=== PATIENT | female | born 1970 | race American Indian/Alaskan Native ===

== ENCOUNTER 2019-10-14 10:40 | Emergency (ER) | payer MEDICARE ==
[2019-10-14] MEDS ORDERED: LORazepam 2 MG/ML VIAL ONE (11:04)
[2019-10-14] MEDS ORDERED: levETIRAcetam 1000 MG/NS 0.75% 1,000 MG/100 ML BAG IV ONE ×2 (11:08→11:21)
[2019-10-14] MEDS ORDERED: LORazepam 2 MG/ML VIAL IV ONE (11:20)
[2019-10-14 11:39] LABS: Hematocrit 42.3 % (30.3-42.9); Hemoglobin 13.7 gm/dl (10.1-14.3); Mean Corpuscular HGB Conc 33 % (30-34); Mean Corpuscular Volume 97 fl (79-97); Platelet Count 255 K/mm3 (140-440); Red Blood Count 4.37 M/mm3 (3.65-5.03); Red Cell Distribution Width 15.4 % (13.2-15.2)
--- NOTE | 2019-10-14 11:51 | XRay Report ---
CHEST 1 VIEW INDICATION / CLINICAL INFORMATION: CINTIA. COMPARISON: None available. FINDINGS: SUPPORT DEVICES: None. HEART / MEDIASTINUM: No significant abnormality. LUNGS / PLEURA: No significant pulmonary or pleural abnormality.. No pneumothorax. ADDITIONAL FINDINGS: No significant additional findings. IMPRESSION: 1. No acute findings. Signer Name: Yosvany Marx MD Signed: 10/14/2019 11:47 AM Workstation Name: [id number]
[2019-10-14 11:55] LABS: Creatine Kinase MB < 1.0 ng/mL (0.0-4.0)
[2019-10-14 11:56] LABS: Alanine Aminotransferase 78 units/L (7-56); Albumin 4.7 g/dL (3.9-5); BUN/Creatinine Ratio 10; Bilirubin,Direct < 0.2 mg/dL (0-0.2); Blood Urea Nitrogen 11 mg/dL (7-17); Hemolysis Index 4
--- NOTE | 2019-10-14 12:12 | Cat Scan Report ---
CT head/brain wo con INDICATION / CLINICAL INFORMATION: 49 years Female; Stroke symptoms. TECHNIQUE: Routine CT head without contrast. All CT scans at this location are performed using CT dos e reduction for ALARA by means of automated exposure control. COMPARISON: 04/20/2009 FINDINGS: BRAIN / INTRACRANIAL CONTENTS: No acute hemorrhage, mass effect, midline shift, hydrocephalus, or acu te, large territorial infarct. No chronic infarct or atrophy appreciated. No significant white matter abnormality. There may be slight prominence of the pituitary gland, near the infundibulum. However, this finding i s not significantly changed from prior study. Follow-up with MRI of the pituitary, as clinically medina anted. CRANIOCERVICAL JUNCTION: No significant abnormality. ORBITS: No significant abnormality of visualized orbits. SINUSES / MASTOIDS: Mild mucosal thickening in the ethmoids. ADDITIONAL FINDINGS: Sebaceous cyst seen superficial left parietal-occipital region. No signs of unde rlying calvarial fracture appreciated. IMPRESSION: 1. No focal intra-axial mass, hemorrhage, hydrocephalus, or acute, large territorial infarct. 2. There may be mild prominence of the pituitary gland as described above. Follow-up with MRI of the pituitary, as clinically warranted. Certainly, this can be performed on an outpatient basis. Signer Name: Tyson Garcia MD, III Signed: 10/14/2019 12:08 PM Workstation Name: [id number]
[2019-10-14 12:23] VITALS: BP 129/77
[2019-10-14 12:40] LABS: INR 1.17 (0.87-1.13); Partial Thromboplastin Time 25.7 Sec. (24.2-36.6)
[2019-10-14 12:41] LABS: Thrombin Time 17.8 Sec. (15.1-19.6)
[2019-10-14 12:46] LABS: Total Cells Counted 100
[2019-10-14 12:47] LABS: Basophils % (Manual) 0 % (0.0-1.8); Burr Cells Few; Eosinophils % (Manual) 0 % (0.0-4.3); Platelet Estimate Consistent w Auto; Tear Drop Cells Few
--- NOTE | 2019-10-14 13:55 | Emergency Department Report ---
ED General Adult HPI - General Chief complaint: Seizure Stated complaint: CONVULSIONS Time Seen by Provider: 10/14/19 11:06 Source: patient Mode of arrival: Stretcher Limitations: Other - History of Present Illness Initial comments: 49-year-old female brought in by medics after a seizure. Family thought that she was "postictal" too long. She was transported to this facility further evaluation. She was found to have valproic acid bottles from 2017. Noncompliance is of course a possibility. When the patient presented to the emergency department she had another seizure. He was given a gram of Keppra. She was sent for a CT scan. - Related Data Home Medications Medication Instructions Recorded Confirmed Last Taken Divalproex ER 500 mg PO Q6H 10/14/19 10/14/19 Unknown Previous Rx's Medication Instructions Recorded Last Taken Type levETIRAcetam [Keppra TAB] 500 mg PO BID #60 tablet 10/14/19 Unknown Rx Allergies Allergy/AdvReac Type Severity Reaction Status Date / Time No Known Allergies Allergy Verified 10/14/19 12:18 ED Review of Systems ROS: Stated complaint: CONVULSIONS Other details as noted in HPI Comment: Unobtainable due to pts medical conditions ED Past Medical Hx - Past Medical History Previous Medical History?: Yes Hx Seizures: Yes Additional medical history: JING - Surgical History Additional Surgical History: JING - Social History Smoking Status: Unknown if ever smoked - Medications Home Medications: Home Medications Medication Instructions Recorded Confirmed Last Taken Type Divalproex ER 500 mg PO Q6H 10/14/19 10/14/19 Unknown History levETIRAcetam [Keppra TAB] 500 mg PO BID #60 tablet 10/14/19 Unknown Rx ED Physical Exam - General Limitations: Altered Mental Status (there active ictus) General appearance: other (conjugate gaze deviation to the right) - Head Head exam: Present: atraumatic - Eye Eye exam: Absent: scleral icterus - ENT ENT exam: Present: normal exam - Neck Neck exam: Absent: tenderness, meningismus - Respiratory Respiratory exam: Present: normal lung sounds bilaterally. Absent: respiratory distress - Cardiovascular Cardiovascular Exam: Present: regular rate, normal rhythm. Absent: systolic murmur, diastolic murmur, rubs, gallop - GI/Abdominal GI/Abdominal exam: Present: soft. Absent: distended, tenderness, guarding, rebound, rigid - Extremities Exam Extremities exam: Present: normal inspection - Back Exam Back exam: Present: normal inspection - Neurological Exam Neurological exam: Present: other (active seizure) - Psychiatric Psychiatric exam: Present: other (not applicable) - Skin Skin exam: Present: warm, dry, intact, normal color. Absent: rash ED Course Vital Signs 10/14/19 10/14/19 11:12 12:19 Temperature 98.9 F Pulse Rate 120 H 95 H Respiratory 20 16 Rate Blood Pressure 162/84 Blood Pressure 129/77 [Left] O2 Sat by Pulse 97 95 Oximetry - Reevaluation(s) Reevaluation #1: Patient was observed. She appeared to do well with Keppra. Her seizure resolved. She returned to her neurological baseline which is completely intact. She was walked by nursing staff to make sure she was stable. She had her family requested discharge. She is appropriate for discharge. She is counseled to return as needed and follow-up with her neurologist. She is counseled not to drive. She is prescribed Keppra. 10/14/19 14:02 ED Medical Decision Making - Lab Data Result diagrams: 10/14/19 Unknown 10/14/19 Unknown Laboratory Results - last 24 hr 10/14/19 10/14/19 10/14/19 Unknown Unknown Unknown WBC 12.0 H RBC 4.37 Hgb 13.7 Hct 42.3 MCV 97 MCH 31 MCHC 33 RDW 15.4 H Plt Count 255 Lymph # Sales Representative Groceries Add Manual Diff Complete Total Counted 100 Seg Neuts % (Manual) 49.0 Band Neutrophils % 0 Lymphocytes % (Manual) 46.0 H Reactive Lymphs % (Man) 1.0 Monocytes % (Manual) 4.0 Eosinophils % (Manual) 0 Basophils % (Manual) 0 Metamyelocytes % 0 Myelocytes % 0 Promyelocytes % 0 Blast Cells % 0 Nucleated RBC % Not Reportable Seg Neutrophils # Man 5.9 Band Neutrophils # 0.0 Lymphocytes # (Manual) 5.5 H Abs React Lymphs (Man) 0.1 Monocytes # (Manual) 0.5 Eosinophils # (Manual) 0.0 Basophils # (Manual) 0.0 Metamyelocytes # 0.0 Myelocytes # 0.0 Promyelocytes # 0.0 Blast Cells # 0.0 WBC Morphology Not Reportable Hypersegmented Neuts Not Reportable Hyposegmented Neuts Not Reportable Hypogranular Neuts Not Reportable Smudge Cells Not Reportable Toxic Granulation Not Reportable Toxic Vacuolation Not Reportable Dohle Bodies Not Reportable Pelger-Huet Anomaly Not Reportable Aren Rods Not Reportable Platelet Estimate Consistent w auto Clumped Platelets Not Reportable Plt Clumps, EDTA Not Reportable Large Platelets Not Reportable Giant Platelets Not Reportable Platelet Satelliting Not Reportable Plt Morphology Comment Not Reportable RBC Morphology Not Reportable Dimorphic RBCs Not Reportable Polychromasia Not Reportable Hypochromasia Not Reportable Poikilocytosis Not Reportable Anisocytosis Not Reportable Microcytosis Not Reportable Macrocytosis Not Reportable Spherocytes Not Reportable Pappenheimer Bodies Not Reportable Sickle Cells Not Reportable Target Cells Not Reportable Tear Drop Cells Few Ovalocytes Not Reportable Helmet Cells Not Reportable [place] Bodies Not Reportable [place] Rings Not Reportable [place] Cells Few Bite Cells Not Reportable Crenated Cell Not Reportable Elliptocytes Not Reportable Acanthocytes (Spur) Not Reportable Rouleaux Not Reportable Hemoglobin C Crystals Not Reportable Schistocytes Not Reportable Malaria parasites Not Reportable Erlin Bodies Not Reportable Hem Pathologist Commnt No PT 15.1 H INR 1.17 H APTT 25.7 Thrombin Time 17.8 Sodium 138 Potassium 4.4 Chloride 95.8 L Carbon Dioxide 10 L Anion Gap 37 BUN 11 Creatinine 1.1 Estimated GFR > 60 BUN/Creatinine Ratio 10 Glucose 141 H Calcium 10.0 Total Bilirubin 0.60 Direct Bilirubin < 0.2 Indirect Bilirubin 0.4 AST 42 H ALT 78 H Alkaline Phosphatase 110 Total Creatine Kinase 117 CK-MB (CK-2) < 1.0 CK-MB (CK-2) Rel Index 0.8 Troponin T < 0.010 Total Protein 8.3 H Albumin 4.7 Albumin/Globulin Ratio 1.3 - Radiology Data Radiology results: report reviewed (pituitary abnormality, no acute finding.) Critical care attestation.: If time is entered above; I have spent that time in minutes in the direct care of this critically ill patient, excluding procedure time. ED Disposition Clinical Impression: Recurrent seizures, Pituitary gland enlarged, Seizure disorder Disposition: DC-01 TO HOME OR SELFCARE Is pt being admited?: No Does the pt Need Aspirin: No Condition: Stable Instructions: Epilepsy (ED), Recurrent Seizures Adult (ED) Additional Instructions: Not drive until cleared by her neurologist. Keppra as directed. Return as needed. Your CT scan showed a mild abnormality of the pituitary gland. Please show this to your neurologist for further advice and evaluation. Prescriptions: levETIRAcetam [Keppra TAB] 500 mg PO BID #60 tablet Referrals: PRIMARY CARE, [Primary Care Provider] - 3-5 Days usual, neurologist [Other] - 3-5 Days Time of Disposition: 14:06
== END 2019-10-14 14:45 | disposition home or self-care (01) ==
LOC: ED 10:40
DX: G40.802 Other epilepsy, not intractable, without status epilepticus (principal); E23.6 Other disorders of pituitary gland; B55.1 Cutaneous leishmaniasis; Z79.899 Other long term (current) drug therapy
CPT/HCPCS: 36415; 70450; 71045; 80048; 80076; 82550; 82553; 84484; 85007; 85025; 85610; 85670; 85730; 93005; 93010; 96365; 96375; 99285; J1953; J2060; 96374